=== PATIENT | male | born 1990 | race Caucasian/White ===

== ENCOUNTER 2020-06-28 07:06 | Outpatient (CLI) | payer OTHER, SELFPAY ==
--- NOTE | 2020-06-28 07:15 | US_ITS ---
WS: [id number] Complete ABDOMINAL ULTRASOUND HISTORY: R10.819 - Abdominal tenderness, unspecified site COMPARISON: None available. Liver: 17.0 cm in length. Liver is slightly enlarged. Moderate hepatic steatosis with coarsened echot exture. No mass or bile duct dilatation. Gallbladder: Normally distended with no gallstones, wall thickening or pericholecystic fluid. Gallbladder wall thickness: 0.2 cm. Pancreas: Normal size and echogenicity. CBD: 0.4 cm. Right kidney: 10.7 cm x 5.7 cm x 7.3 cm. No mass, cortical thickening or hydronephrosis. Left kidney: 9.8 cm x 6.6 cm x 5.5 cm. No mass, cortical thickening or hydronephrosis. Spleen: Normal size and echogenicity. Abdominal aorta and IVC are within normal limits. No ascites. No abdominal wall hernia identified. US/US abdomen complete* [id number] IMPRESSION: 1. Mild hepatomegaly with moderate hepatic steatosis. 2. No bile duct dilatation. 3. No abdominal wall defect.
== END 2020-06-28 07:07 | disposition home or self-care (01) ==
LOC: RAD 07:07
PROVIDERS: PCP Nurse Practitioner Family; Visit Provider Nurse Practitioner Family
DX: R10.819 Abdominal tenderness, unspecified site (principal); R19.00 Intra-abdominal and pelvic swelling, mass and lump, unspecified site; R16.0 Hepatomegaly, not elsewhere classified; K76.0 Fatty (change of) liver, not elsewhere classified
CPT/HCPCS: 76700

== ENCOUNTER → 2020-07-19 12:44 | Outpatient (BNVA) | payer OTHER, SELFPAY | PROVIDERS: PCP Nurse Practitioner Family; Visit Provider Psychiatry & Neurology Neurology | DX: G62.89 Other specified polyneuropathies (principal); M95.8 Other specified acquired deformities of musculoskeletal system | CPT/HCPCS: 95885; 95909 ==

== ENCOUNTER 2020-12-03 15:38 | Outpatient (CLI) | payer OTHER, SELFPAY ==
--- NOTE | 2020-12-03 15:43 | XRR_ITS ---
PROCEDURE INFORMATION: Exam: XR Right Hip Exam date and time: 12/03/2020 3:43 PM Age: 30 years old Clinical indication: Hip pain; Patient HX: Right hip and low back pain for 5 days, no known trauma; Additional info: M25.551 - pain in right hip TECHNIQUE: Imaging protocol: XR Right hip. Views: 1 view hip with pelvis when performed. Total images: 2 COMPARISON: No relevant prior studies available. FINDINGS: Bones/joints: Unremarkable. No acute fracture. No radiographically visible joint effusion. No visible significant degenerative disease. Soft tissues: Unremarkable. XR/XR hip RT 2-3V wo/w pel* [id number] IMPRESSION: No acute findings.
--- NOTE | 2020-12-03 15:43 | XRR_ITS ---
PROCEDURE INFORMATION: Exam: XR Lumbosacral Spine Exam date and time: 12/03/2020 3:43 PM Age: 30 years old Clinical indication: Patient HX: Right hip and low back pain for 5 days, no known trauma; Additional info: M54.5 - low back pain TECHNIQUE: Imaging protocol: XR of the lumbosacral spine. Views: 2 or 3 views. Total images: 3 COMPARISON: No relevant prior studies available. FINDINGS: Bones/joints: No visible evidence of active or acute osseous pathology. No visible spondylolysis or spondylolisthesis. Pedicles intact. No visible facet arthrosis. Mild disc space height loss L5/S1. Remaining intervertebral disc space heights preserved throughout. Soft tissues: Unremarkable. XR/XR lumbar spine 2-3V* [id number] IMPRESSION: 1. Mild disc space height loss L5/S1. 2. Nonacute.
== END 2020-12-03 15:39 | disposition home or self-care (01) ==
PROVIDERS: PCP Nurse Practitioner Family; Visit Provider Nurse Practitioner Family
DX: M25.551 Pain in right hip (principal); M54.5 Low back pain
CPT/HCPCS: 72100; 73502

== ENCOUNTER → 2021-04-29 09:46 | Outpatient (BNVA) | payer OTHER, SELFPAY | PROVIDERS: PCP Nurse Practitioner Family; Visit Provider Nurse Practitioner Family | DX: Z01.812 Encounter for preprocedural laboratory examination (principal); Z20.822 Contact with and (suspected) exposure to COVID-19 | CPT/HCPCS: 87635 ==

== ENCOUNTER 2021-06-04 06:00 | Outpatient (RCR) | payer OTHER, SELFPAY | END 2021-07-04 23:59 | disposition home or self-care (01) | LOC: TPT 06:00 | PROVIDERS: PCP Nurse Practitioner Family; Referring Provider Orthopaedic Surgery; Visit Provider Orthopaedic Surgery | DX: Z47.89 Encounter for other orthopedic aftercare (principal) | CPT/HCPCS: 97110; 97140; 97161 ==

== ENCOUNTER 2021-07-05 06:00 | Outpatient (RCR) | payer OTHER, SELFPAY | END 2021-07-18 23:59 | disposition home or self-care (01) | LOC: TPT 06:00 | PROVIDERS: PCP Nurse Practitioner Family; Referring Provider Orthopaedic Surgery; Visit Provider Orthopaedic Surgery | DX: Z47.89 Encounter for other orthopedic aftercare (principal) | CPT/HCPCS: 97110 ==

== ENCOUNTER 2024-05-28 22:12 | Emergency (ER) | payer BC, SELFPAY ==
--- NOTE | 2024-05-28 22:29 | XRR_ITS ---
PROCEDURE INFORMATION: Exam: XR Abdomen Exam date and time: 05/28/2024 10:52 PM Age: 34 years old Clinical indication: Abdominal pain; Localized; Left lower quadrant (llq); C/O llq pain; Additional info: Llq abd pain TECHNIQUE: Imaging protocol: Radiologic exam of the abdomen. Views: 2 Views. Upright and supine views. COMPARISON: US abdomen complete* [id number] 06/28/2020 7:24 AM FINDINGS: Gastrointestinal tract: Normal. No bowel dilation. Intraperitoneal space: Normal. No free air. Bones/joints: Unremarkable for age. XR/XR acute abdomen series [id number] IMPRESSION: No acute findings.
[2024-05-28 22:33] VITALS: BP 171/89; PULSE 86; RESP 18; TEMP 36.8; O2SAT 98; BMI 29.7
[2024-05-28 23:01] LABS: Basophils % 0.3 %; Eosinophils # 0.1 10^3/uL (0.0-0.8); Eosinophils % 0.7 %; Hematocrit 42.6 % (37-53); Lymphocytes # 1.3 10^3/uL (0.8-4.8); Lymphocytes % 12.4 %; Mean Corpuscular HGB Conc 34.5 g/dL (30-55); Mean Corpuscular Hemoglobin 30.4 pg (27-33); Mean Corpuscular Volume 88.2 fl (82-101); Mean Platelet Volume 9.4 fL (7.4-10.4); Monocytes # 0.3 10^3/uL (0.2-0.9); Monocytes % 2.9 %; Neutrophils % 83.3 %; Nucleated Red Blood Cells % 0 %; Platelet Count 229 10^3/cmm (157-399); Red Blood Count 4.83 10^6/uL (3.85-5.65); Red Cell Distribution Width 12.7 % (12.1-15.1); White Blood Count 10.32 10^3/uL (3.29-11.43)
[2024-05-28 23:05] LABS: Add Urine Microscopic? NO
[2024-05-28 23:08] LABS: Bilirubin Urine Negative (Negative); Blood Urine Negative (Negative); Glucose Urine UA Negative (Normal); Ketones Urine Trace (Negative); Leukocyte Esterase Urine Negative (Negative); Nitrate Urine Negative (Negative); Protein Urine Negative (Negative); Specific Gravity, Urine 1.022 (1.005-1.030); Urine Appearance Clear (CLEAR); Urine Color Yellow (Yellow); pH Urine 7.5 (5-7)
[2024-05-28 23:11] LABS: Charge for UA Resulting for Rev
[2024-05-28 23:21] LABS: Lactic Sepsis W/Reflex 2.3 mmol/L (0.5-2.2)
[2024-05-28 23:22] LABS: Alanine Aminotransferase 23 U/L (0-41); Albumin Level 4.3 g/dL (3.5-5.2); Alkaline Phosphatase 70 U/L (40-130); Anion Gap 16.1 (5-19); Aspartate Amino Transferase 19 U/L (0-40); Blood Urea Nitrogen 16 mg/dL (6-20); Calcium 9.5 mg/dL (8.5-10.5); Carbon Dioxide 22 mmol/L (22-29); Chloride 104 mmol/L (98-107); Creatinine Clr Calc Pharmacy 118.7992; Globulin 3.3 g/dL (1.3-4.6); Glomerular Filtration Rate 76.6 mL/min (90-130); Glucose 118 mg/dL (65-115); Lipase 25 U/L (13-60); Osmolality Calculated 288 mOsm/kg (285-295); Potassium 4.1 mmol/L (3.5-5.1); Sodium 138 mmol/L (136-145); Total Bilirubin 0.3 mg/dL (0.15-1.2); Total Protein 7.6 g/dL (6.6-8.7)
--- NOTE | 2024-05-28 23:28 | CTR_ITS ---
PROCEDURE INFORMATION: Exam: CT Abdomen And Pelvis With Contrast Exam date and time: 05/28/2024 11:44 PM Age: 34 years old Clinical indication: Abdominal pain; Localized; Left lower quadrant (llq); C/O llq pain; Additional info: Llq abd pain TECHNIQUE: Imaging protocol: Computed tomography of the abdomen and pelvis with contrast. Radiation optimization: All CT scans at this facility use at least one of these dose optimization techniques: automated exposure control; mA and/or kV adjustment per patient size (includes targeted exams where dose is matched to clinical indication); or iterative reconstruction. Contrast material: OMNI 350; Contrast volume: 100 ml; Contrast route: INTRAVENOUS (IV); COMPARISON: CR (ABDOMEN, ) 05/28/2024 10:52 PM RADIATION DOSE METRICS: Total DLP (mGy-cm): 1014.44 FINDINGS: Liver: Normal. No mass. Gallbladder and biliary ducts: Normal. No calcified stones. No ductal dilation. Pancreas: Normal. No ductal dilation. Spleen: Normal. No splenomegaly. Adrenal glands: Normal. No mass. Kidneys and ureters: Normal. No hydronephrosis. Stomach and bowel: There is an area of ovoid fat with surrounding stranding adjacent to the distal descending colon seen on image 57 of series 3. No colonic wall thickening. No bowel obstruction. Appendix: Normal appendix. Intraperitoneal space: Unremarkable. No free air. No significant fluid collection. Vasculature: Unremarkable. No abdominal aortic aneurysm. Lymph nodes: Unremarkable. No enlarged lymph nodes. Urinary bladder: Unremarkable as visualized. Reproductive: Unremarkable as visualized. Bones/joints: Unremarkable. No acute fracture. Soft tissues: Unremarkable. CT/CT abdomen pelvis w con* [id number] IMPRESSION: Findings above related to epiploic appendagitis adjacent to the left hemicolon. No colonic wall thickening to suggest primary colitis. This is a self-limiting condition
[2024-05-28] MEDS: iohexol 350 mg/mL 500 mL Btl (per mL) IV (23:46)
--- NOTE | 2024-05-29 00:02 | W.ED.ABDPA2 ---
Documented by User: PHILLIP Rico 05/29/24 00:29 HPI - Abdominal Pain General: Chief Complaint: Abdominal Pain Stated Complaint: sharp pain in low left abd Time Seen by Provider: 05/28/24 22:28 History of Present Illness: John Turner is a 34-year-old man that presents to the emergency department with abrupt onset left lower quadrant abdominal pain at 1400 today. He reports symptoms worsened throughout the day and into the evening. Patient denies other complaints. Denies nausea vomiting or diarrhea. Patient reports he had a normal bowel movement at 1800 today. Patient denies burning with urination, penile or testicular pain. He denies fever or chills. He denies prior episodes. He denies trauma or injury. Associated Symptoms: Denies chills, constipation, diarrhea, dysuria, fever(s), hematochezia, hematuria, nausea and vomiting Related Data Previous Rx's ?Medication ?Instructions ?Recorded ketorolac 10 mg tablet 10 mg PO TID PRN pain #10 tabs 05/29/24 ondansetron 4 mg disintegrating 4 mg PO Q6H PRN nausea and 05/29/24 tablet vomiting #14 tabs Allergies Allergy/AdvReac Type Severity Reaction Status Date / Time Penicillins Allergy ALGY-Hives Verified 05/28/24 22:38 Review of Systems Const: Denies: fever(s), chills, body aches or change in appetite Eyes: Denies: change in vision, eye discharge or eye redness ENMT: Denies: throat pain, hoarseness, ear or mastoid pain, ear discharge, nasal discharge or nasal congestion Card: Denies: chest pain, palpitations, irregular heart rhythm or edema Resp: Denies: dyspnea, productive cough, non-productive cough or wheezing GI: Reports: abdominal pain; Denies: nausea, vomiting, diarrhea, constipation or hematochezia : Denies: dysuria, urinary frequency, urinary urgency, urinary hesitancy or hematuria Musc: Denies: joint swelling, joint redness, joint warmth or joint stiffness Skin/Breast: Denies: rash Neuro: Denies: headache(s) Psych: Denies: suicidal ideation or homicidal ideation Mariusz/Lymph: Denies: enlarged lymph nodes or tender lymph nodes PFSH ED PFSH: Social History (Reviewed 02/15/21 @ 13:23 by RHETT Bray Smoking and tobacco/nicotine status: never used tobacco/nicotine Second hand smoke exposure: No Alcohol intake: never Substance/Drug Use: never Adopted: No Caregiver/support person: No Lives independently: Yes Household members: spouse Housing: House Marital status: Number of children: 1 Highest education level completed: Associate Degree: Occupational, Technical, Vocational Program service: No Current occupational status: employed Physical Exam Const: COMMON NORMALS: no acute distress, patient oriented x3 and alert GENERAL APPEARANCE: cooperative ORIENTATION/CONSCIOUSNESS: Yes awake, Yes oriented to person, Yes oriented to place and Yes oriented to time HENMT: COMMON NORMALS: normocephalic and atraumatic HEAD & SCALP: normocephalic and atraumatic FACE & SINUS: normal facial exam MOUTH: Normal oral and palatal mucosa present THROAT: posterior oropharynx normal Eye: COMMON NORMALS: Equal, round and reactive pupils present, EOMs intact bilaterally, conjunctivae normal and no scleral icterus GENERAL EYE: appearance normal, both eyes and all related structures ALIGNMENT: Yes alignment normal PERIORBITAL: periorbital findings normal CONJUNCTIVA: Yes conjunctivae normal PUPIL: Yes Equal, round and reactive pupils present Neck/C-Spine: COMMON NORMALS: full ROM GENERAL: Yes normal visual inspection Lymph: LYMPHATIC: no lymphadenopathy noted Chest: COMMONS NORMALS: normal inspection of the chest Breast/axilla inspection: Yes no chest deformity, asymmetry, normal contours, no nodules, masses, tenderness Resp: COMMON NORMALS: normal respiratory effort, No retractions, No use of accessory muscles and clear to auscultation bilaterally EFFORT & INSPECTION: Yes able to speak in complete sentences and Yes symmetric chest movement AUSCULTATION: clear to auscultation bilaterally Cardio: COMMON NORMALS: regular rate, regular rhythm and Peripheral pulses 2+ throughout RATE: regular rate RHYTHM: regular rhythm PERIPHERAL PULSES: Peripheral pulses 2+ throughout GI: COMMON NORMALS: Soft to palpation and No hepatosplenomegaly present INSPECTION: Yes normal to inspection AUSCULTATION: Yes normoactive bowel sounds PALPATION: Yes Soft to palpation, Yes Tenderness to palpation present (GI) Details: LLQ and LUQ and Yes No hepatosplenomegaly present RECTAL EXAM: Yes deferred Extremity: COMMON NORMALS: normal to inspection GENERAL: Yes normal exam except as noted Neuro: COMMON NORMALS: patient oriented x3 SENSORIUM/ORIENTATION: Yes alert, Yes oriented to person, Yes oriented to place and Yes oriented to time CRANIAL NERVES: Yes CN normal except as noted Psych: COMMON NORMALS: mental status grossly normal, Normal thought process present, cooperative, activity/motor behavior normal, denies homicidal ideation and denies suicidal ideation THOUGHT PROCESS: Normal thought process present Skin: COMMON NORMALS: no rashes or lesions noted, no wounds and turgor normal GENERAL SKIN EXAM: no rashes or lesions noted and turgor normal Course Vital Signs: Vital signs: Vital Signs Temperature 98.2 F 05/28/24 22:33 Pulse Rate 84 05/29/24 00:57 Respiratory Rate 16 05/29/24 00:57 Blood Pressure 159/96 05/29/24 00:57 Pulse Oximetry 96 05/29/24 00:57 Oxygen Delivery Me thod Room Air 05/29/24 00:57 MDM - Abdominal Pain Medical Decision Making Patient evaluated in the emergency department for left lower and left upper quadrant abdominal pain that started at 1400 today. Differential diagnosis includes constipation, urinary tract infection, kidney stone, diverticulosis/diverticulitis. Also includes colitis. Patient underwent laboratory evaluation that included a CBC, CMP, lipase and lactic acid. We also obtained a urinalysis. Laboratory studies are largely unremarkable. His lactic acid 2.3. He has no anemias, leukocytosis, thrombocytopenia. Electrolytes revealed no significant abnormality. Lipase within normal limits. Urinalysis reveals no evidence of UTI or hematuria. The XR acute abdomen with series reveals normal gas patterns. The CT abdomen and pelvis with contrast reveals Dr Hatfield to assume care at this time Lab Data 05/28/24 22:54 05/28/24 22:54 Labs/Radiology: Radiology Impressions Chest/Abdomen X-ray 05/28/24 22:29 IMPRESSION: No acute findings. Abdomen/Pelvis CT 05/28/24 23:28 IMPRESSION: Findings above related to epiploic appendagitis adjacent to the left hemicolon. No colonic wall thickening to suggest primary colitis. This is a self-limiting condition Laboratory Results WBC 10.32 10^3/uL (3.29-11.43) 05/28/24 22:54 RBC 4.83 10^6/uL (3.85-5.65) 05/28/24 22:54 Hgb 14.70 g/dL (11.27-16.99) 05/28/24:54 Hct 42.6 % (37-53) 05/28/24: MCV 88.2 fl (82-101) 05/28/24 22:54 MCH 30.4 pg (27-33) 05/28/24: MCHC 34.5 g/dL (30-55) 05/28/24: RDW 12.7 % (12.1-15.1) 05/28/24: Plt Count 229 10^3/cmm (157-399) 05/28/24 22: MPV 9.4 fL (7.4-10.4) 05/28/24: Neut % (Auto) 83.3 % 05/28/24: Lymph % (Auto) 12.4 % 05/28/24: [place] % (Auto) 2.9 % 05/28/24: Eos % (Auto) 0.7 % 05/28/24: Baso % (Auto) 0.3 % 05/28/24: Neut # (Auto) 8.60 10^3/uL (1.8-7.7) H 05/28/24: Lymph # (Auto) 1.3 10^3/uL (0.8-4.8) 05/28/24: [place] # (Auto) 0.3 10^3/uL (0.2-0.9) 05/28/24: Eos # (Auto) 0.1 10^3/uL (0.0-0.8) 05/28/24: Baso # (Auto) 0.0 10^3/uL (0.0-0.1) 05/28/24: Nucleated RBC % (auto) 0 % 05/28/24: Nucleated RBCs # 0.0 /100WBC 05/28/24: Sodium 138 mmol/L (136-145) 05/28/24: Potassium 4.1 mmol/L (3.5-5.1) 05/28/24: Chloride 104 mmol/L (98-107) 05/28/24: Carbon Dioxide 22 mmol/L (22-29) 02/22/25 22:54 Anion Gap 16.1 (5-19) 05/28/24 22:54 BUN 16 mg/dL (6-20) 05/28/24 22: Creatinine 1.1 mg/dL (0.7-1.2) 05/28/24 22:54 GFR Calculation 76.6 mL/min (90-130) L 05/28/24 22: Glucose 118 mg/dL (65-115) H 05/28/24 22:54 Calculated Osmolality 288 mOsm/kg (285-295) 05/28/24 22:54 Lactic Acid 2.3 mmol/L (0.5-2.2) H 05/28/24 22:54 Calcium 9.5 mg/dL (8.5-10.5) 05/28/24: Total Bilirubin 0.3 mg/dL (0.15-1.2) 05/28/24 22: AST 19 U/L (0-40) 05/28/24: ALT 23 U/L (0-41) 05/28/24: Alkaline Phosphatase 70 U/L (40-130) 05/28/24 22:54 Total Protein 7.6 g/dL (6.6-8.7) 05/28/24 22: Albumin 4.3 g/dL (3.5-5.2) 05/28/24 22: Globulin 3.3 g/dL (1.3-4.6) 05/28/24 22:54 Lipase 25 U/L (13-60) 05/28/24 22:54 Urine Color Yellow (Yellow) 05/28/24 22: Urine Appearance Clear (CLEAR) 05/28/24 22:54 Urine pH 7.5 (5-7) 05/28/24 22: Ur Specific [place] 1.022 (1.005-1.030) 05/28/24 22: Urine Protein Negative (Negative) 05/28/24: Urine Glucose (UA) Negative (Normal) 05/28/24 22: Urine Ketones Trace (Negative) 05/28/24 22: Urine Blood Negative (Negative) 05/28/24: Urine Nitrate Negative (Negative) 05/28/24: Urine Bilirubin Negative (Negative) 05/28/24 22:54 Urine Urobilinogen 1.0 mg/dL (Negative) 05/28/24 22:54 Ur Leukocyte Esterase Negative (Negative) 05/28/24 22:54 Amorphous Sediment Not Reportable 05/28/24 22:54 XR interpretation done by ED provider, pending radiology final review Discharge Plan Discharge Patient Disposition: Home Clinical Impression: Abdominal pain, Epiploic appendagitis Condition: Stable Prescriptions: New ketorolac 10 mg tablet 10 mg PO TID PRN (Reason: pain) Qty: 10 0RF ondansetron 4 mg tablet,disintegrating 4 mg PO Q6H PRN (Reason: nausea and vomiting) Qty: 14 0RF Discharge Orders: Discharge ED (Routine); Ordered 05/29/24 Ordered By: Martin Hatfield Referrals: Lisa Cabrera FNP-C [Primary Care Provider] - 1-3 days Patient Instructions: Abdominal Pain (ED), Epiploic Appendagitis (ED), Opioid Safety, Pain Management Activity Restrictions/Additional Instructions: Medication as directed. Follow-up with your doctor. Return for problems. Print Language: Belizean Coding Level of Care Code ED Business Intelligence Reporting Analyst for [facility] Documented by User: Martin Hatfield DO 05/29/24 01:02 HPI - Abdominal Pain General: Chief Complaint: Abdominal Pain Stated Complaint: sharp pain in low left abd Time Seen by Provider: 05/28/24 22:28 History of Present Illness: John Turner is a 34-year-old man that presents to the emergency department with abrupt onset left lower quadrant abdominal pain at 1400 today. He reports symptoms worsened throughout the day and into the evening. Patient denies other complaints. Denies nausea vomiting or diarrhea. Patient reports he had a normal bowel movement at 1800 today. Patient denies burning with urination, penile or testicular pain. He denies fever or chills. He denies prior episodes. He denies trauma or injury. Patient checked out to me at shift change. CT shows epiploic appendagitis. Self-limiting condition. Pain control. He will be allowed discharge Related Data Previous Rx's ?Medication ?Instructions ?Recorded ketorolac 10 mg tablet 10 mg PO TID PRN pain #10 tabs 05/29/24 ondansetron 4 mg disintegrating 4 mg PO Q6H PRN nausea and 05/29/24 tablet vomiting #14 tabs Allergies Allergy/AdvReac Type Severity Reaction Status Date / Time Penicillins Allergy ALGY-Hives Verified 05/28/24 22:38 PFSH ED PFSH: Social History Smoking and tobacco/nicotine status: never used tobacco/nicotine Second hand smoke exposure: No Alcohol intake: never Substance/Drug Use: never Adopted: No Caregiver/support person: No Lives independently: Yes Household members: spouse Housing: House Marital status: Number of children: 1 Highest education level completed: Associate Degree: Occupational, Technical, Vocational Program service: No Current occupational status: employed Course Vital Signs: Vital signs: Vital Signs Temperature 98.2 F 05/28/24 22:33 Pulse Rate 84 05/29/24 00:57 Respiratory Rate 16 05/29/24 00:57 Blood Pressure 159/96 05/29/24 00:57 Pulse Oximetry 96 05/29/24 00:57 Oxygen Delivery Me thod Room Air 05/29/24 00:57 MDM - Abdominal Pain Lab Data 05/28/24 22:54 05/28/24 22:54 Labs/Radiology: Radiology Impressions Chest/Abdomen X-ray 05/28/24 22:29 IMPRESSION: No acute findings. Abdomen/Pelvis CT 05/28/24 23:28 IMPRESSION: Findings above related to epiploic appendagitis adjacent to the left hemicolon. No colonic wall thickening to suggest primary colitis. This is a self-limiting condition Laboratory Results WBC 10.32 10^3/uL (3.29-11.43) 05/28/24 22:54 RBC 4.83 10^6/uL (3.85-5.65) 05/28/24 22:54 Hgb 14.70 g/dL (11.27-16.99) 05/28/24 22:54 Hct 42.6 % (37-53) 05/28/24 22:54 MCV 88.2 fl (82-101) 05/28/24 22:54 MCH 30.4 pg (27-33) 05/28/24: MCHC 34.5 g/dL (30-55) 05/28/24: RDW 12.7 % (12.1-15.1) 05/28/24 22:54 Plt Count 229 10^3/cmm (157-399) 05/28/24: MPV 9.4 fL (7.4-10.4) 05/28/24 22:54 Neut % (Auto) 83.3 % 05/28/24 22:54 Lymph % (Auto) 12.4 % 05/28/24:54 [place] % (Auto) 2.9 % 05/28/24: Eos % (Auto) 0.7 % 05/28/24: Baso % (Auto) 0.3 % 05/28/24: Neut # (Auto) 8.60 10^3/uL (1.8-7.7) H 05/28/24: Lymph # (Auto) 1.3 10^3/uL (0.8-4.8) 05/28/24:54 [place] # (Auto) 0.3 10^3/uL (0.2-0.9) 05/28/24: Eos # (Auto) 0.1 10^3/uL (0.0-0.8) 05/28/24: Baso # (Auto) 0.0 10^3/uL (0.0-0.1) 05/28/24: Nucleated RBC % (auto) 0 % 05/28/24: Nucleated RBCs # 0.0 /100WBC 05/28/24 22:54 Sodium 138 mmol/L (136-145) 05/28/24: Potassium 4.1 mmol/L (3.5-5.1) 05/28/24: Chloride 104 mmol/L (98-107) 05/28/24: Carbon Dioxide 22 mmol/L (22-29) 05/28/24: Anion Gap 16.1 (5-19) 05/28/24: BUN 16 mg/dL (6-20) 02/22/25 22:54 Creatinine 1.1 mg/dL (0.7-1.2) 05/28/24 22: GFR Calculation 76.6 mL/min (90-130) L 05/28/24 22:54 Glucose 118 mg/dL (65-115) H 05/28/24 22:54 Calculated Osmolality 288 mOsm/kg (285-295) 05/28/24 22:54 Lactic Acid 2.3 mmol/L (0.5-2.2) H 05/28/24 22:54 Calcium 9.5 mg/dL (8.5-10.5) 05/28/24 22: Total Bilirubin 0.3 mg/dL (0.15-1.2) 05/28/24 22: AST 19 U/L (0-40) 05/28/24 22: ALT 23 U/L (0-41) 05/28/24: Alkaline Phosphatase 70 U/L (40-130) 05/28/24 22: Total Protein 7.6 g/dL (6.6-8.7) 05/28/24 22: Albumin 4.3 g/dL (3.5-5.2) 05/28/24 22:54 Globulin 3.3 g/dL (1.3-4.6) 05/28/24: Lipase 25 U/L (13-60) 05/28/24 22:54 Urine Color Yellow (Yellow) 05/28/24 22: Urine Appearance Clear (CLEAR) 05/28/24: Urine pH 7.5 (5-7) 05/28/24: Ur Specific [place] 1.022 (1.005-1.030) 05/28/24: Urine Protein Negative (Negative) 05/28/24 22: Urine Glucose (UA) Negative (Normal) 05/28/24: Urine Ketones Trace (Negative) 05/28/24: Urine Blood Negative (Negative) 05/28/24 22: Urine Nitrate Negative (Negative) 05/28/24: Urine Bilirubin Negative (Negative) 05/28/24: Urine Urobilinogen 1.0 mg/dL (Negative) 05/28/24: Ur Leukocyte Esterase Negative (Negative) 02/22/25 22:54 Amorphous Sediment Not Reportable 05/28/24 22:54 Discharge Plan Discharge Patient Disposition: Home Clinical Impression: Abdominal pain, Epiploic appendagitis Condition: Stable Prescriptions: New ketorolac 10 mg tablet 10 mg PO TID PRN (Reason: pain) Qty: 10 0RF ondansetron 4 mg tablet,disintegrating 4 mg PO Q6H PRN (Reason: nausea and vomiting) Qty: 14 0RF Discharge Orders: Discharge ED (Routine); Ordered 05/29/24 Ordered By: Martin Hatfiedl Referrals: Lisa Cabrera FNP-C [Primary Care Provider] - 1-3 days Patient Instructions: Abdominal Pain (ED), Epiploic Appendagitis (ED), Opioid Safety, Pain Management Activity Restrictions/Additional Instructions: Medication as directed. Follow-up with your doctor. Return for problems. Print Language: [place] Coding Level of Care Code ED Business Intelligence Reporting Analyst for Hector Willingham
[2024-05-29 00:47] LABS: Reflex Lactate Order REFLEX LACTIC ORDERD
[2024-05-29] MEDS: dexamethasone 4 mg/mL INJ 8 MG IVP (00:53)
[2024-05-29] MEDS: ondansetron 2 mg/ML SDV 2 mL 4 MG IVP (00:56)
[2024-05-29] MEDS: ketorolac 30 mg/mL INJ IVP (00:56)
[2024-05-29 00:57] VITALS: BP 159/96; PULSE 84; RESP 16; O2SAT 96
[2024-05-29 01:26] VITALS: BP 139/79; PULSE 88; RESP 20; O2SAT 96
== END 2024-05-29 01:27 | disposition home or self-care (01) ==
PROVIDERS: Emergency Provider Nurse Practitioner; PCP Nurse Practitioner Family
DX: R10.32 Left lower quadrant pain (principal); K36 Other appendicitis
CPT/HCPCS: 74022; 74177; 80053; 81003; 83605; 83690; 85025; 96374; 96375; 99285; J1100; J1885; J2405